=== PATIENT | female | born 1990 | race Caucasian/White ===

== ENCOUNTER 2018-08-04 15:23 | Emergency (ER) | payer OTHER ==
[~2018-08-04] VITALS: Ht 152.4 cm; Wt 59.0 kg
[2018-08-04 15:41] VITALS: BP 103/60
--- NOTE | 2018-08-04 15:45 | NUR ---
BIB SELF. AAOX4 C/O 02/16 PAIN TO LEFT GROIN, LEFT HIP THAT RADIATES TO THE BACK, SHOULDERS AND NECK X 2 DAYS. PT DENIES ANY TRAUMA OR INJURY. NO N/V/D. STEADY GAIT NOTED. HOB UP. BED SIDE RAILS UP X 1. ON LOW BED POSITION,LOCKED. ER MADE AWARE OF PT STATUS.
[2018-08-04] MEDS ORDERED: KETOROLAC 30 MG/ML VIAL IM ONE (16:45)
--- NOTE | 2018-08-04 17:04 | NUR ---
DATE NIGHT CAREGIVER AT BEDSIDE
[2018-08-04 18:41] VITALS: BP 111/62
--- NOTE | 2018-08-04 18:42 | NUR ---
Patient discharged with v/s stable. Written and verbal after care instructions given and explained. Patient alert, oriented and verbalized understanding of instructions. Ambulatory with steady gait. All questions addressed prior to discharge. ID band removed. Patient advised to follow up with PMD. Rx of IBU given. Patient educated on indication of medication including possible reaction and side effects. Opportunity to ask questions provided and answered.
== END 2018-08-04 18:42 | disposition home or self-care (01) ==
LOC: MED 15:23
DX: M25.552 Pain in left hip (principal); M54.9 Dorsalgia, unspecified
CPT/HCPCS: 72170; 73502; 81025; 96372; 99283; J1885; Q0092

== ENCOUNTER 2018-12-23 01:31 | Emergency (ER) | payer OTHER ==
[~2018-12-23] VITALS: Ht 162.6 cm; Wt 57.6 kg
--- NOTE | 2018-12-23 01:52 | NUR ---
PT TAKEN TO BED 11
[2018-12-23 01:54] VITALS: BP 106/73
--- NOTE | 2018-12-23 02:00 | NUR ---
28 Y/O FEMALE PRESENTS TO ED, C/O OF CONSTIPATION. PT STATES SHE HAS FEW BM THE PAST SIX WEEKS. C/O OF LOWER ABD ACHING PAIN 11/16. BS ACTIVE ON ALL QUADRANTS, PAIN ON PALPATION ON LOWER ABD, SOFT, TENDER. PT HAS HX OF BILATERAL VARICOSE VEIN SURGEY S/P NOVEMBER. PT VSS. ERMD AWARE. WILL CONTINUE TO MONITOR.
--- NOTE | 2018-12-23 02:47 | NUR ---
X-Ray at bedside.
--- NOTE | 2018-12-23 03:21 | NUR ---
Dr. Pool examining patient.
[2018-12-23 03:31] VITALS: BP 111/69
--- NOTE | 2018-12-23 03:31 | NUR ---
PT DISCHARGED WITH PAPERWORK. RX LACTULOSE, MINERAL OIL, SENOKOT, PROTONIX. EDUCATED PT REGARDING MEDICATIONS AND S/E. EDUCATED PT REGARDING DISCHARGE DIAGNOSIS. PT VERBALIZED UNDERSTANDING OF TEACHING. TOLD PT TO FOLLOW UP WITH PCP AND WHEN TO RETURN TO ED. PT VSS. ALL QUESIONS ANSWERED.
== END 2018-12-23 03:31 | disposition home or self-care (01) ==
LOC: MED 01:31
DX: K59.00 Constipation, unspecified (principal); Z98.890 Other specified postprocedural states
CPT/HCPCS: 74018; 81002; 81025; 99283; Q0092

== ENCOUNTER 2019-01-14 14:34 | Emergency (ER) | payer OTHER ==
[~2019-01-14] VITALS: Ht 157.5 cm; Wt 60.8 kg
[2019-01-14 14:46] VITALS: BP 99/72
[2019-01-14 15:51] LABS: ANION GAP 10.4 (8-16); CREATININE 0.7 mg/dL (0.6-1.3); POTASSIUM 3.4 mmol/L (3.5-5.1)
[2019-01-14 16:05] LABS: FREE T4 (FREE THYROXINE) 0.98 ng/dL (0.76-1.46); THYROID STIMULATING HORMONE 1.02 uIU/mL (0.34-3.74)
[2019-01-14 16:25] VITALS: BP 90/62
== END 2019-01-14 16:20 | disposition home or self-care (01) ==
LOC: MED 14:34
DX: R42 Dizziness and giddiness (principal); R00.2 Palpitations; Z76.0 Encounter for issue of repeat prescription; Z86.39 Personal history of other endocrine, nutritional and metabolic disease
CPT/HCPCS: 36415; 80048; 81025; 84439; 84443; 93005; 99284

== ENCOUNTER 2019-11-09 01:10 | Emergency (ER) | payer OTHER ==
[~2019-11-09] VITALS: Ht 157.5 cm; Wt 58.1 kg
[2019-11-09 01:21] VITALS: BP 104/63
--- NOTE | 2019-11-09 01:26 | NUR ---
PT AMBULATED TO BED #6
[2019-11-09 01:39] LABS: APPEARANCE,URINE SL CLOUDY (CLEAR); BILIRUBIN,URINE NEGATIVE (NEGATIVE); BLOOD, URINE NEGATIVE (NEGATIVE); COLOR,URINE YELLOW (YELLOW); LEUKOCYTE ESTERASE ,URINE 1+ (NEGATIVE); NITRITE, URINE NEGATIVE (NEGATIVE); UGLUCOSE NEGATIVE (NEGATIVE)
--- NOTE | 2019-11-09 01:40 | NUR ---
Dr. Pool examining patient.
--- NOTE | 2019-11-09 01:47 | NUR ---
28 Y/O FEMALE PRESENTED TO ED C/O URINARY BURNING X2 DAY. PT DENIES N/V/D/ FEVER/COUGH. PT SECONDARY C/O OF INTERMITTENT EAR PAIN X1 YEAR. PT DENIES EAR RINGING AND LOSS OF HEARING. A/O X4. PT BREATHING EVEN AND UNLABORED. PT SITTING IN BEDSIDE CHAIR. MEDHX- HYPERTHYROIDISM NKA
[2019-11-09 01:57] VITALS: BP 104/63
--- NOTE | 2019-11-09 01:57 | NUR ---
Patient discharged with v/s stable. Written and verbal after care instructions given and explained. Patient alert, oriented and verbalized understanding of instructions. Ambulatory with steady gait. All questions addressed prior to discharge. ID band removed. Patient advised to follow up with PMD. Rx of MOTRIN, CORTISPORIN AND BACTRIM given. Patient educated on indication of medication including possible reaction and side effects. Opportunity to ask questions provided and answered.
[2019-11-09 02:14] LABS: RBC,URINE 0-5 /HPF (0-5)
== END 2019-11-09 01:57 | disposition home or self-care (01) ==
LOC: MED 01:10
DX: H92.02 Otalgia, left ear (principal); E07.9 Disorder of thyroid, unspecified; N39.0 Urinary tract infection, site not specified; Z90.49 Acquired absence of other specified parts of digestive tract
CPT/HCPCS: 81001; 81025; 87086; 99283

== ENCOUNTER 2019-11-11 14:51 | Emergency (ER) | payer OTHER ==
[~2019-11-11] VITALS: Ht 157.5 cm; Wt 58.1 kg
[2019-11-11 15:20] VITALS: BP 91/58
--- NOTE | 2019-11-11 16:24 | NUR ---
PT TAKEN TO [facility] FROM [facility] WITH STEADY GAIT.
--- NOTE | 2019-11-11 16:24 | NUR ---
PT C/O PERSISTANT LEFT EAR PAIN S/P INJURIED HER LEFT EAR. PT WAS SEEN IN OUR ER 11/09/19 DX WITH OTALGIA AND TX WITH CORTISPORIN OTIC EAR DROPS W/O ANY RELIEF OF THE PAIN. PT STATES THE PAIN RADIATES TO THE LEFT SIDED HEAD WITH NUMBNESS SENSATION TO TOUCH. NO DRAINAGE NOTICED FROM LEFT EAR REPORTED. WHITE DIACHARGE NOTICED ON PT'S LEFT EAR, TM IS NOT VISIBLE AT THIS TIME. PT DENIES ANY FEVER, CP, SOB, OR COUGH AT THIS TIME; PATIENT STATES PAIN OF 10/10 AT THIS TIME; VSS; PATIENT POSITIONED FOR COMFORT IN [facility]. ER MD MADE AWARE OF PT STATUS.
--- NOTE | 2019-11-11 16:30 | NUR ---
HELENE QUINONES IS EVALUATING PT.
[2019-11-11 16:44] VITALS: BP 100/57
--- NOTE | 2019-11-11 16:44 | NUR ---
Patient discharged with v/s stable. Written and verbal after care instructions given and explained. Patient verbalized understanding. Ambulatory with steady gait. All questions addressed prior to discharge. Advised to follow up with PMD.
== END 2019-11-11 16:44 | disposition home or self-care (01) ==
LOC: MED 14:51
DX: H72.92 Unspecified perforation of tympanic membrane, left ear (principal); E07.9 Disorder of thyroid, unspecified
CPT/HCPCS: 99282; 99283

== ENCOUNTER 2019-12-27 01:43 | Emergency (ER) | payer OTHER ==
[~2019-12-27] VITALS: Ht 157.5 cm; Wt 58.1 kg
[2019-12-27 01:54] VITALS: BP 100/62
--- NOTE | 2019-12-27 02:10 | NUR ---
DR. NELSON AT BEDSIDE FOR MEDICAL EVALUATION
--- NOTE | 2019-12-27 02:11 | NUR ---
29 Y/O FEMALE PRESENTED TO ED C/O LT EAR PAIN. PT WAS PREVIOUSLY SEEN AT ER W/ SAME LT EAR PAIN - PT WAS DX W/ PERFORATED EARDRUM AND WENT HOME W/ OTIC EAR SUSPENION MEDICATION. PT STATES HER EAR PAIN HAS STAYED THE SAME AND HAS NOT GOTTEN BETTER AT THIS TIME. PT STATES SHE HAS BEEN TAKING IBUPRFOEN FOR PAIN W/ NO RELIEF. PT RESTING IN BED, LOCKED AND IN LOWEST POSITIONN, HOB ELEVATED , SIDE RAIL X1. A/O X4 , RR EVEN AND UNLABORED, VSS. PMH: HYPERTHYRODISM NKA
[2019-12-27 02:21] VITALS: BP 100/62
[2019-12-27] MEDS: AMOXIL/CLAVULANATE 875/125 MG 1 TAB PO ONE (02:22)
== END 2019-12-27 02:21 | disposition home or self-care (01) ==
LOC: MED 01:43
DX: H72.92 Unspecified perforation of tympanic membrane, left ear (principal); H60.92 Unspecified otitis externa, left ear; E07.9 Disorder of thyroid, unspecified
CPT/HCPCS: 99283

== ENCOUNTER 2020-01-13 00:16 | Emergency (ER) | payer OTHER ==
[~2020-01-13] VITALS: Ht 157.5 cm; Wt 58.1 kg
--- NOTE | 2020-01-13 00:31 | NUR ---
PT AMBULATED TO ER BED 09
[2020-01-13 00:32] VITALS: BP 105/66
--- NOTE | 2020-01-13 00:45 | NUR ---
ERMD AT BEDSIDE EVAULATING PT
--- NOTE | 2020-01-13 00:45 | NUR ---
29 Y/O FEMALE C/O PALPITATIONS X1 WEEK, PT STATES SHE FEELS SOB AND HEAVINESS TO CHEST AREA. LUNG SOUNDS CLA. O2 SAT 100% ON RA. SR ON MONITOR. PT PRESENTS DIAPHORETIC. DENIES FEVER, CHILLS. +NAUSEA, -VOMITING, DIARRHEA. 5/10 GENERALIZED BODY ACHES. PT STATES HER PRIMARY DOCTOR RECENTLY LOWERED HER HYPERTHYOID MEDICATION DOSE. PT ALSO C/O OF "CRUNCHING" SOUNDS IN L KNEE, CREPTICE FELT. DENIES ANY RECENT/TRAUMA FALL. NKA MED HX: HYPERTHRYROIDISM RX: TAPAZOLE 5MG, PANTOPRAZOLE
--- NOTE | 2020-01-13 00:45 | NUR ---
Note arabella in ED - 01/13/20 at 0112 by [email or web address] 29 Y/O FEMALE C/O PALPITATIONS X1 WEEK, PT STATES SHE FEELS SOB, LUNG SOUNDS CLEAR THROUGHOUT, PULSE OX 100% ON ROOM AIR. PT PRESENTS DIAPHORETIC. DENIES FEVER, CHILLS. PT HAS NAUSEA WITH NO VOMITING, AND 5/10 GENERALIZED BODY ACHES. PT STATES HER PRIMARY DOCTOR RECENTLY LOWERED HER HYPERTHYOID MEDICATION DOSE. NKA MED HX: HYPERTHRYROID RX: TAPAZOLE 5MG, PANTOPRAZOLE
--- NOTE | 2020-01-13 01:06 | NUR ---
PT AMBULATED TO RESTROOM STEADY GAIT
--- NOTE | 2020-01-13 01:07 | NUR ---
PT AMBULATED TO BED 09. STEADY GAIT.
--- NOTE | 2020-01-13 01:13 | NUR ---
LAB AT BEDSIDE
--- NOTE | 2020-01-13 01:18 | NUR ---
XRAY AT BEDSIDE
[2020-01-13 01:26] LABS: BASOPHILS % (AUTO) 0.3 % (0.0-2.0); EOSINOPHILS # (AUTO) 0.1 K/uL (0-0.4); EOSINOPHILS % (AUTO) 1.6 % (0.0-4.0); HEMATOCRIT 31.6 % (36-48); HEMOGLOBIN 9.7 g/dL (12.0-16.0); LYMPHOCYTES # (AUTO) 2.5 K/uL (2.5-16.5); LYMPHOCYTES % (AUTO) 44.8 % (20.5-51.1); MEAN CORPUSCULAR HEMOGLOBIN 20 pg (27-31); MEAN CORPUSCULAR HGB CONC 31 g/dL (33-37); MEAN CORPUSCULAR VOLUME 64.9 fL (80-94); MONOCYTES # (AUTO) 0.4 K/uL (0.8-1.0); MONOCYTES % (AUTO) 7.2 % (1.7-9.3); NEUTROPHILS # (AUTO) 2.6 K/uL (1.8-7.7); NEUTROPHILS % (AUTO) 46.1 % (42.2-75.2); PLATELET COUNT (AUTO) 191 K/uL (140-450); RED BLOOD CELL COUNT(AUTO) 4.86 MIL/uL (4.20-5.40); RED CELL DISTRIBUTION WIDTH 15.8 % (11.6-13.7); WHITE BLOOD COUNT (AUTO) 5.6 K/uL (4.8-10.8)
--- NOTE | 2020-01-13 01:48 | NUR ---
providing relief for primary rn Francesco-- assumed pt care at this time.
[2020-01-13 01:55] LABS: ALBUMIN 3.7 g/dL (3.4-5.0); ANION GAP 10.2 (8-16); CARBON DIOXIDE 29.8 mmol/L (21-32); CREATININE 0.7 mg/dL (0.6-1.3); FREE T4 (FREE THYROXINE) 1.07 ng/dL (0.76-1.46); THYROID STIMULATING HORMONE 4.61 uIU/mL (0.34-3.74); TOTAL BILIRUBIN 0.2 mg/dL (0.0-1.0)
[2020-01-13 01:59] LABS: CREATINE KINASE MB 0.7 ng/mL (0-3.6)
[2020-01-13 02:45] VITALS: BP 108/71
--- NOTE | 2020-01-13 02:45 | NUR ---
Patient discharged with v/s stable. Written and verbal after care instructions given and explained. Patient verbalized understanding. Ambulatory with steady gait. ID Band Removed. All questions addressed prior to discharge. Advised to follow up with PMD.
== END 2020-01-13 02:45 | disposition home or self-care (01) ==
LOC: MED 00:16
DX: R00.2 Palpitations (principal); R06.02 Shortness of breath; R11.0 Nausea; E03.9 Hypothyroidism, unspecified; Z98.890 Other specified postprocedural states
CPT/HCPCS: 36415; 71045; 73560; 80053; 81025; 82550; 82553; 84439; 84443; 84484; 85025; 93005; 99285; Q0092; 81002; 96372; 99283

== ENCOUNTER 2020-04-19 20:20 | Emergency (ER) | payer OTHER ==
[~2020-04-19] VITALS: Ht 154.9 cm; Wt 58.1 kg
[2020-04-19 20:57] VITALS: BP 108/67
[2020-04-19 22:35] VITALS: BP 108/67
== END 2020-04-19 22:35 | disposition home or self-care (01) ==
LOC: MED 20:20
DX: S39.012A Strain of muscle, fascia and tendon of lower back, initial encounter (principal); E05.90 Thyrotoxicosis, unspecified without thyrotoxic crisis or storm; V89.2XXA Person injured in unspecified motor-vehicle accident, traffic, initial encounter; Y93.89 Activity, other specified; Y92.89 Other specified places as the place of occurrence of the external cause; Y99.8 Other external cause status
CPT/HCPCS: 72100; 81002; 81025; 99283

== ENCOUNTER 2020-05-05 22:11 | Emergency (ER) | payer OTHER ==
[~2020-05-05] VITALS: Ht 157.5 cm; Wt 59.9 kg
[2020-05-05 22:20] VITALS: BP 107/78
--- NOTE | 2020-05-05 22:23 | NUR ---
TO LOBBY A/W BED AMBULATORY
--- NOTE | 2020-05-05 22:35 | NUR ---
EDVIN WITH ORDERS , CARRIED OUT
--- NOTE | 2020-05-05 23:21 | NUR ---
PT AMBULATED TO BED 2
[2020-05-05] MEDS ORDERED: cefTRIAXone 1,000 MG in LIDOCAINE MPF 1% 2.1 ML IM ONE (23:40)
[2020-05-05] MEDS ORDERED: KETOROLAC 30 MG/ML VIAL IM ONE (23:40)
[2020-05-05] MEDS ORDERED: cefTRIAXone 1,000 MG VIAL ONE (23:45)
[2020-05-05] MEDS ORDERED: LIDOCAINE MPF 1% 5 ML ONE (23:45)
--- NOTE | 2020-05-06 00:03 | NUR ---
US IN PROGRESS
--- NOTE | 2020-05-06 01:43 | NUR ---
READY FOR DISCHARGE PT STATES SHE IS FEELING MORE COMFORTABLE AT THIS TIME
[2020-05-06 01:45] VITALS: BP 107/78
== END 2020-05-06 01:45 | disposition home or self-care (01) ==
LOC: MED 22:11
DX: R10.2 Pelvic and perineal pain (principal)
CPT/HCPCS: 76856; 81002; 81025; 96372; 99284; J0696; J1885; J2001

== ENCOUNTER 2021-09-11 23:57 | Emergency (ER) | payer OTHER ==
[~2021-09-11] VITALS: Ht 157.5 cm; Wt 61.4 kg
[2021-09-12 00:16] VITALS: BP 113/63
--- NOTE | 2021-09-12 00:23 | NUR ---
PT TAKEN TO BED 8
--- NOTE | 2021-09-12 01:02 | NUR ---
CLEARED COFFEE FROM HAIR. LACERATION NOW VISIBLE. COMPLAINED OF EYES HURTING AND BEING SLEEPY.
--- NOTE | 2021-09-12 01:44 | NUR ---
Dr. Coburn examining patient.
[2021-09-12] MEDS ORDERED: IBUPROFEN 800 MG TAB PO ONE (01:55)
--- NOTE | 2021-09-12 02:02 | NUR ---
30 y/ o f bib self for laceration to top of head on 09/11/2021 at 2220. pt hit head bunk bed. pt denies loc. pt felt dizzy and uncoordinated. pt put coffee PATIENT STATES PAIN OF 8/10 AT THIS TIME; DENIES N/V/D; SKIN IS PINK/WARM/DRY; AAOX4 WITH EVEN AND STEADY GAIT; LUNGS CLEAR BL; HR EVEN AND REGULAR; PT DENIES ANY FEVER, CP, SOB, OR COUGH AT THIS TIME; VSS; PATIENT POSITIONED FOR COMFORT; HOB ELEVATED; BEDRAILS UP X2; BED DOWN. ER MD MADE AWARE OF PT STATUS. pmh: hypothyroid, anemia rx: metroprazole allergy: iron supplements
[2021-09-12] MEDS ORDERED: BACI1PAC6 TP (02:03)
[2021-09-12] MEDS ORDERED: IBUP-2218 PO (02:04)
[2021-09-12 02:45] VITALS: BP 113/63
--- NOTE | 2021-09-12 02:45 | NUR ---
Patient discharged with v/s stable. Written and verbal after care instructions given and explained. Patient alert, oriented and verbalized understanding of instructions. Ambulatory with steady gait. All questions addressed prior to discharge. ID band removed. Patient advised to follow up with PMD. Rx of BACITRACIN, IBUPROFEN given. Opportunity to ask questions provided and answered.
--- NOTE | 2021-09-12 03:34 | NUR ---
The patient's care was reviewed and supervised by Claribel Powell RN.
== END 2021-09-12 02:45 | disposition home or self-care (01) ==
LOC: MED 23:57
DX: S01.01XA Laceration without foreign body of scalp, initial encounter (principal); Z86.39 Personal history of other endocrine, nutritional and metabolic disease; Z79.1 Long term (current) use of non-steroidal anti-inflammatories (NSAID); Z79.2 Long term (current) use of antibiotics; W22.8XXA Striking against or struck by other objects, initial encounter; Y92.89 Other specified places as the place of occurrence of the external cause; Y93.89 Activity, other specified; Y99.8 Other external cause status
CPT/HCPCS: 12001; 99282

== ENCOUNTER 2021-09-28 01:32 | Emergency (ER) | payer OTHER ==
[~2021-09-28] VITALS: Ht 157.5 cm; Wt 61.5 kg
[~2021-09-28 01:32] MED LIST: BACI1PAC6 TP; IBUP-2218 PO
[2021-09-28 02:12] VITALS: BP 90/56
--- NOTE | 2021-09-28 02:17 | NUR ---
PT TAKEN TO BED 12.
--- NOTE | 2021-09-28 02:49 | NUR ---
d/c with VSS. d/c education given. opportunity to ask questions given and answered. no rx given.
== END 2021-09-28 02:49 | disposition home or self-care (01) ==
LOC: MED 01:32
DX: S01.01XD Laceration without foreign body of scalp, subsequent encounter (principal); Z48.02 Encounter for removal of sutures; X58.XXXA Exposure to other specified factors, initial encounter
CPT/HCPCS: 99281

== ENCOUNTER 2021-11-02 00:17 | Emergency (ER) | payer OTHER ==
[~2021-11-02] VITALS: Ht 157.5 cm; Wt 59.0 kg
[2021-11-02 00:33] VITALS: BP 105/61
--- NOTE | 2021-11-02 01:23 | NUR ---
Dr. Licona examining patient.
[2021-11-02] MEDS ORDERED: CEPH-588 PO (01:37)
[2021-11-02] MEDS ORDERED: KETO2FOA2 TP (01:37)
[2021-11-02] MEDS ORDERED: ZINC10OI TP (01:37)
[2021-11-02 01:42] VITALS: BP 115/72
--- NOTE | 2021-11-02 01:42 | NUR ---
Patient discharged with v/s stable. Written and verbal after care instructions given and explained for UTI. Patient alert, oriented and verbalized understanding of instructions. Ambulatory with steady gait. All questions addressed prior to discharge. ID band removed. Patient advised to follow up with PMD. Rx of Zinc Oxide, Keflex and Ketoconazole given. Patient educated on indication of medication including possible reaction and side effects. Opportunity to ask questions provided and answered.
== END 2021-11-02 01:42 | disposition home or self-care (01) ==
LOC: MED 00:17
DX: N39.0 Urinary tract infection, site not specified (principal); B36.0 Pityriasis versicolor; Z86.39 Personal history of other endocrine, nutritional and metabolic disease; Z98.890 Other specified postprocedural states; Z79.899 Other long term (current) drug therapy; Z79.2 Long term (current) use of antibiotics; Z79.1 Long term (current) use of non-steroidal anti-inflammatories (NSAID)
CPT/HCPCS: 81002; 81025; 99283

== ENCOUNTER 2021-12-12 23:48 | Emergency (ER) | payer OTHER ==
[~2021-12-12] VITALS: Ht 157.5 cm; Wt 59.9 kg
[~2021-12-12 23:48] MED LIST changes: +CEPH-588 PO; +KETO2FOA2 TP; +ZINC10OI TP
[2021-12-13 00:05] VITALS: BP 126/59
[2021-12-13 00:51] LABS: APPEARANCE,URINE CLEAR (CLEAR); BILIRUBIN,URINE NEGATIVE (NEGATIVE); BLOOD, URINE 2+ (NEGATIVE); COLOR,URINE YELLOW (YELLOW); LEUKOCYTE ESTERASE ,URINE NEGATIVE (NEGATIVE); NITRITE, URINE NEGATIVE (NEGATIVE); PH,URINE 5.5 (5.0-9.0); UGLUCOSE NEGATIVE (NEGATIVE)
[2021-12-13 01:04] LABS: RBC,URINE 11-20 (MOD) /HPF (0-5); WBC,URINE 0-5 /HPF (0-5)
[2021-12-13] MEDS ORDERED: PHEN-1877 PO (01:31)
[2021-12-13] MEDS ORDERED: NITR100C7 PO (01:31)
[2021-12-13 01:38] VITALS: BP 126/59
--- NOTE | 2021-12-13 01:38 | NUR ---
Patient discharged with v/s stable. Written and verbal after care instructions given and explained. Patient alert, oriented and verbalized understanding of instructions. Ambulatory with steady gait. All questions addressed prior to discharge. ID band removed. Patient advised to follow up with PMD. Rx of MACROBID, PYRIDIUM, given. Patient educated on indication of medication including possible reaction and side effects. Opportunity to ask questions provided and answered. Addendum: 12/13/21 at 0359 by [email or web address] no nursing interventions performed.
== END 2021-12-13 01:38 | disposition home or self-care (01) ==
LOC: MED 23:48
DX: N39.0 Urinary tract infection, site not specified (principal); E03.9 Hypothyroidism, unspecified
CPT/HCPCS: 81001; 87210; 99283

== ENCOUNTER 2022-08-27 10:56 | Emergency (ER) | payer OTHER ==
[~2022-08-27] VITALS: Ht 157.5 cm; Wt 62.1 kg
[~2022-08-27 10:56] MED LIST changes: +BACI-416 TP; -BACI1PAC6 TP; +NITR100C7 PO; +PHEN-1877 PO
[2022-08-27 11:08] VITALS: BP 110/62
[2022-08-27] MEDS ORDERED: ONDANSETRON 4 MG ODT PO ONE (12:35)
--- NOTE | 2022-08-27 12:45 | NUR ---
TO ER BED 10
[2022-08-27 14:06] LABS: APPEARANCE,URINE CLEAR (CLEAR); BILIRUBIN,URINE NEGATIVE (NEGATIVE); BLOOD, URINE NEGATIVE (NEGATIVE); COLOR,URINE YELLOW (YELLOW); LEUKOCYTE ESTERASE ,URINE NEGATIVE (NEGATIVE); NITRITE, URINE NEGATIVE (NEGATIVE); UGLUCOSE NEGATIVE (NEGATIVE)
[2022-08-27 14:13] LABS: ALBUMIN 3.8 g/dL (3.4-5.0); ANION GAP 10.7 (8-16); ASPARTATE AMINOTRANSFERASE 14 U/L (15-37); CARBON DIOXIDE 27.9 mmol/L (21-32); CHLORIDE 97 mmol/L (98-107); CREATININE 0.8 mg/dL (0.6-1.3); GFR ARICAN-AMERICAN 107 mL/min (>90); GLUCOSE 118 mg/dL (74-106); LIPASE 57 U/L (73-393); POTASSIUM 3.6 mmol/L (3.5-5.1); SODIUM SERUM 132 mmol/L (136-145); TOTAL BILIRUBIN 0.3 mg/dL (0.0-1.0); UREA NITROGEN, BLOOD 11 mg/dL (7-18)
[2022-08-27 14:18] LABS: BASOPHILS % (AUTO) 0.2 % (0.0-2.0); HEMATOCRIT 31.7 % (36-48); HEMOGLOBIN 10.2 g/dL (12.0-16.0); LYMPHOCYTES # (AUTO) 0.8 K/uL (2.5-16.5); LYMPHOCYTES % (AUTO) 12.5 % (20.5-51.1); MEAN CORPUSCULAR HEMOGLOBIN 21 pg (27-31); MEAN CORPUSCULAR HGB CONC 32 g/dL (33-37); MEAN CORPUSCULAR VOLUME 63.6 fL (80-94); MONOCYTES # (AUTO) 0.4 K/uL (0.8-1.0); MONOCYTES % (AUTO) 6.7 % (1.7-9.3); NEUTROPHILS # (AUTO) 5.1 K/uL (1.8-7.7); NEUTROPHILS % (AUTO) 80.6 % (42.2-75.2); PLATELET COUNT (AUTO) 84 K/uL (140-450); RED BLOOD CELL COUNT(AUTO) 4.98 MIL/uL (4.20-5.40); RED CELL DISTRIBUTION WIDTH 15.4 % (11.6-13.7); WHITE BLOOD COUNT (AUTO) 6.4 K/uL (4.8-10.8)
[2022-08-27] MEDS ORDERED: MORPHINE SULFATE 4 MG/ML SYR IM ONE (14:40)
[2022-08-27] MEDS ORDERED: ONDA-188 SL (14:47)
[2022-08-27] MEDS ORDERED: ASCO500T95 PO (14:50)
[2022-08-27] MEDS ORDERED: FERR325E14 PO (14:50)
[2022-08-27] MEDS ORDERED: NACL 0.9% 1,000 ML IV ONE (15:45)
[2022-08-27 17:10] VITALS: BP 108/65
--- NOTE | 2022-08-27 17:10 | NUR ---
Theo bell in EDM - 08/27/22 at 1716 by [email or web address] Patient discharged with v/s stable. Written and verbal after care instructions given and explained to parent/guardian. Parent/Guardian verbalized understanding. Ambulatorysteady gait. All questions addressed prior to discharge. Advised to follow up with PMD.
== END 2022-08-27 17:10 | disposition home or self-care (01) ==
LOC: MED 10:56
DX: R10.13 Epigastric pain (principal); Z20.822 Contact with and (suspected) exposure to COVID-19; R11.2 Nausea with vomiting, unspecified; M79.10 Myalgia, unspecified site; D69.6 Thrombocytopenia, unspecified; R42 Dizziness and giddiness; J02.9 Acute pharyngitis, unspecified; Z79.899 Other long term (current) drug therapy
CPT/HCPCS: 36415; 76705; 80053; 81003; 81025; 83605; 83690; 84484; 85025; 86308; 87081; 87426; 87804; 93005; 96360; 96372; 99285; J2270; J7030; Q0092; Q0162

== ENCOUNTER 2022-09-21 18:49 | Emergency (ER) | payer OTHER ==
[~2022-09-21] VITALS: Ht 157.5 cm; Wt 59.4 kg
[~2022-09-21 18:49] MED LIST changes: +ASCO500T95 PO; +FERR325E14 PO; +ONDA-188 SL
[2022-09-21 19:06] VITALS: BP 98/83
[2022-09-21] MEDS ORDERED: IBUPROFEN 600 MG TAB PO ONE (19:20)
[2022-09-21] MEDS ORDERED: IBUP-2213 PO (20:09)
--- NOTE | 2022-09-21 20:36 | NUR ---
Patient discharged for foot sprain. Written and verbal after care instructions given and explained. Patient alert, oriented and verbalized understanding of instructions. Ambulatory with steady gait. All questions addressed prior to discharge. ID band removed. Patient advised to follow up with PMD. Rx of Ibuprofen given. Patient educated on indication of medication including possible reaction and side effects. Opportunity to ask questions provided and answered.
== END 2022-09-21 20:36 | disposition home or self-care (01) ==
LOC: MED 18:49
DX: S93.691A Other sprain of right foot, initial encounter (principal); E03.9 Hypothyroidism, unspecified; Z79.899 Other long term (current) drug therapy; W22.8XXA Striking against or struck by other objects, initial encounter; Y93.89 Activity, other specified; Y92.89 Other specified places as the place of occurrence of the external cause; Y99.8 Other external cause status
CPT/HCPCS: 29515; 73630; 99283

== ENCOUNTER 2023-05-15 19:17 | Emergency (ER) | payer OTHER ==
[~2023-05-15] VITALS: Ht 157.5 cm; Wt 68.0 kg
[~2023-05-15 19:17] MED LIST changes: -BACI-416 TP; +BACI-418 TP; +IBUP-2213 PO
[2023-05-15 19:25] VITALS: BP 90/60; PULSE 102; RESP 16; TEMP 99.4; O2SAT 99
[2023-05-15 20:19] LABS: FLU A ANTIGEN negative (NEGATIVE); FLU B ANTIGEN NEGATIVE (NEGATIVE)
[2023-05-15] MEDS ORDERED: ONDANSETRON 4 MG ODT PO ONE (20:25)
[2023-05-15] MEDS ORDERED: KETOROLAC 30 MG/ML VIAL IM ONE (20:45)
[2023-05-15] MEDS ORDERED: ONDA-188 SL (20:56)
== END 2023-05-15 21:07 | disposition home or self-care (01) ==
LOC: MED 19:17
DX: B34.9 Viral infection, unspecified (principal); Z20.822 Contact with and (suspected) exposure to COVID-19; M79.604 Pain in right leg; M79.605 Pain in left leg; Z86.39 Personal history of other endocrine, nutritional and metabolic disease; Z79.899 Other long term (current) drug therapy; Z79.1 Long term (current) use of non-steroidal anti-inflammatories (NSAID); Z79.2 Long term (current) use of antibiotics
CPT/HCPCS: 87426; 87804; 96372; 99283; J1885; Q0162